=== PATIENT | male | born 1950 | race Caucasian/White ===

== ENCOUNTER 2018-02-27 22:18 | Day surgery (SDC) | payer OTHER, MEDICARE ==
[~2018-02-27] VITALS: Ht 182.9 cm; Wt 128.2 kg
[~2018-02-27 22:18] MED LIST: ALLO100T30 PO; DABI150C PO; DUTA1CPM PO
[2018-02-27] MEDS ORDERED: ONDANSETRON ODT 4 MG ONE (22:47)
[2018-02-27] MEDS ORDERED: MORPHINE SULFATE 4 MG/ML, 1ML ONE ×2 (22:48→23:56)
[2018-02-27] MEDS: MORPHINE SULFATE 4 MG/ML, 1ML IVPush PRN (22:55)
[2018-02-27] MEDS ORDERED: ONDANSETRON ODT 4 MG PO ONE (23:00)
[2018-02-27] MEDS ORDERED: SODIUM CHLORIDE FLUSH 10ML SYR IVF ONE (23:00)
[2018-02-27 23:13] LABS: MICROSCOPIC AUTO
[2018-02-27 23:14] LABS: CULTURE INDICATED? NO
[2018-02-27 23:21] LABS: ALANINE AMINOTRANSFERASE 50 U/L (12-78); ALBUMIN 3.3 g/dL (3.4-5.0); ANION GAP 8 mmol/L (5-15); BASOPHILS # (AUTO) 0.04 x10^3/uL (0-0.1); BASOPHILS % (AUTO) 0 % (0-1); CALCIUM 8.6 mg/dL (8.5-10.1); CHLORIDE 109 mmol/L (98-107); CREATININE 1.15 mg/dL (0.7-1.3); EOSINOPHILS # (AUTO) 0.06 x10^3/uL (0-0.4); EOSINOPHILS % (AUTO) 1 % (1-7); LYMPHOCYTES # (AUTO) 2.16 x10^3/uL (1-3.4); LYMPHOCYTES % (AUTO) 21 % (22-44); MD NO; MEAN CORPUSCULAR HEMOGLOBIN 29.4 pg (27.5-34.5); MEAN CORPUSCULAR HGB CONC 33.5 g/dL (33.2-36.2); MEAN CORPUSCULAR VOLUME 87.6 fL (81-97); MONOCYTES # (AUTO) 0.65 x10^3/uL (0.2-0.8); MONOCYTES % (AUTO) 6 % (2-9); NEUTROPHILS # (AUTO) 7.31 x10^3/uL (1.8-6.8); NEUTROPHILS % (AUTO) 72 % (42-75); PLATELET COUNT 319 x10^3/uL (130-400); RED BLOOD COUNT 5.17 x10^6/uL (4.38-5.82)
[2018-02-27 23:25] LABS: INTERNATIONAL NORMALIZED RATIO 1.04 (0.93-1.1); PROTHROMBIN TIME 10.8 Seconds (9.6-11.5)
[2018-02-27 23:26] LABS: ALKALINE PHOSPHATASE 76 U/L (45-117); BILIRUBIN,TOTAL 0.3 mg/dL (0.2-1.0); TOTAL PROTEIN 7.5 g/dL (6.4-8.2); TROPONIN I < 0.015 ng/mL (0.000-0.045)
[2018-02-28] MEDS: MORPHINE SULFATE 4 MG/ML, 1ML IVPush PRN (00:14)
[2018-02-28] MEDS ORDERED: ONDANSETRON ODT 4 MG ONE (01:14)
[2018-02-28] MEDS ORDERED: SODIUM CHLORIDE 0.9% 1,000 ML IV ONE (01:21)
[2018-02-28] MEDS ORDERED: PIPERACILLIN/TAZO/PMX 3.375GM 50 ML ONE (01:23)
[2018-02-28] MEDS ORDERED: MORPHINE SULFATE 4 MG/ML, 1ML ONE (01:23)
[2018-02-28] MEDS ORDERED: PIPERACILLIN/TAZO/PMX 3.375GM 50 ML IV ONE (01:30)
[2018-02-28] MEDS ORDERED: MORPHINE SULFATE 4 MG/ML, 1ML IVPush PRN ×2 (01:30→12:30)
[2018-02-28] MEDS ORDERED: ONDANSETRON 2MG/ML, 2ML IVPush PRN ×2 (01:30→09:30)
[2018-02-28] MEDS ORDERED: SODIUM CHLORIDE FLUSH 10ML SYR IVF PRN (01:30)
[2018-02-28] MEDS ORDERED: ONDANSETRON 2MG/ML, 2ML IVPush ONE (01:30)
[2018-02-28] MEDS: PROMETHAZINE 25 MG/ML, 1ML IM PRN ×2 (01:39→02:56)
[2018-02-28] MEDS ORDERED: ONDANSETRON 2MG/ML, 2ML ONE ×4 (01:39→12:10)
[2018-02-28 02:31] VITALS: BP 155/86
[2018-02-28] MEDS ORDERED: FAMO-79 PO (02:38)
[2018-02-28] MEDS ORDERED: FAMO20TA37 PO (02:38)
[2018-02-28] MEDS ORDERED: HYDROmorphone 2 MG/ML, 1ML ONE ×2 (02:53→03:47)
[2018-02-28] MEDS: HYDROmorphone 1 MG/ML, 1ML IVPush PRN ×2 (02:56→03:51)
[2018-02-28 07:53] VITALS: BP 177/87
[2018-02-28] MEDS ORDERED: HYDROmorphone 2 MG/ML, 1ML IV PRN (09:30)
[2018-02-28] MEDS ORDERED: LABETALOL 5MG/ML, 20ML IVPush PRN (09:30)
[2018-02-28 09:51] VITALS: BP 153/79
[2018-02-28] MEDS: PIPERACILLIN/TAZO/PMX 3.375GM 50 ML IV SCH ×2 (09:51→15:49)
[2018-02-28] MEDS ORDERED: BUPIVACAINE/PF-EPI 0.5% 1:200K ONE (11:06)
[2018-02-28] MEDS ORDERED: MIDAZOLAM 1 MG/ML, 2ML ONE (11:40)
[2018-02-28] MEDS ORDERED: FENTANYL PF 250 MCG/5ML ONE (11:40)
[2018-02-28] MEDS ORDERED: DEXAMETHASONE 4 MG/ML, 1ML ONE ×3 (11:41→12:10)
[2018-02-28] MEDS ORDERED: GLYCOPYRROLATE 0.2MG/1ML, 5ML ONE (11:41)
[2018-02-28] MEDS ORDERED: NEOSTIGMINE 1 MG/ML, 10ML ONE ×2 (11:41→12:30)
[2018-02-28] MEDS ORDERED: OMNIPAQUE 350 MG/ML, 100ML BOTTLE ONE (12:00)
[2018-02-28] MEDS ORDERED: BUPIVACAINE/PF-EPI 0.5% 1:200K INFIL ONE (12:00)
[2018-02-28] MEDS ORDERED: SUCCINYLCHOLINE 20 MG/ML, 10ML ONE (12:09)
[2018-02-28] MEDS ORDERED: CEFAZOLIN 1,000 MG ONE (12:09)
[2018-02-28] MEDS ORDERED: ROCURONIUM 10MG/ML,5ML ONE (12:09)
[2018-02-28] MEDS ORDERED: EPHEDRINE 50 MG/ML, 1ML IVPush PRN (12:30)
[2018-02-28] MEDS ORDERED: hydrALAzine 20 MG/ML, 1ML IV PRN (12:30)
[2018-02-28] MEDS ORDERED: ONDANSETRON 2MG/ML, 2ML IV PRN (12:30)
[2018-02-28] MEDS ORDERED: PROMETHAZINE 12.5 MG SUPP PR PRN (12:30)
[2018-02-28] MEDS ORDERED: HALOPERIDOL 5 MG/ML IV PRN (12:30)
[2018-02-28] MEDS ORDERED: MIDAZOLAM 1 MG/ML, 2ML IV PRN (12:30)
[2018-02-28] MEDS ORDERED: ONDANSETRON ODT 8 MG PO PRN (12:30)
[2018-02-28] MEDS ORDERED: HYDROmorphone 1 MG/ML, 1ML IV PRN (12:30)
[2018-02-28] MEDS ORDERED: OXYcodone 5 MG/5 ML ORAL.SOL UDC PO PRN (12:30)
[2018-02-28] MEDS ORDERED: ALBUTEROL SULFATE 2.5 MG/3 ML NPPB PRN (12:30)
[2018-02-28] MEDS ORDERED: PROMETHAZINE 25 MG/ML, 1ML IV PRN (12:30)
[2018-02-28] MEDS ORDERED: MEPERIDINE/PF 25MG/0.5ML IVPush PRN (12:30)
[2018-02-28] MEDS ORDERED: LABETALOL 5MG/ML, 20ML IV PRN (12:30)
[2018-02-28] MEDS ORDERED: LORazepam 2 MG/ML, 1ML IVPush PRN (12:30)
[2018-02-28] MEDS ORDERED: LABETALOL 5MG/ML, 20ML ONE (13:24)
[2018-02-28] MEDS ORDERED: ACETAMINOPHEN 650 MG/20.3 ML UDC ONE (13:30)
[2018-02-28] MEDS ORDERED: ACETAMINOPHEN 325 MG TABLET ONE (13:30)
[2018-02-28] MEDS ORDERED: FENTANYL PF 100 MCG/2ML ONE (13:30)
[2018-02-28] MEDS ORDERED: OXYcodone 5 MG/5 ML ORAL.SOL UDC ONE (13:31)
[2018-02-28] MEDS: FENTANYL PF 100 MCG/2ML IV PRN ×2 (13:35→13:45)
[2018-02-28] MEDS ORDERED: ACETAMINOPHEN 325 MG TABLET PO PRN (14:00)
[2018-02-28] MEDS ORDERED: hydrALAzine 20 MG/ML, 1ML ONE (14:36)
[2018-02-28 15:00] VITALS: BP 141/74
[2018-02-28] MEDS ORDERED: FAMOTIDINE 20 MG TABLET PO SCH (21:00)
[2018-02-28] MEDS ORDERED: ALLOPURINOL 100 MG TABLET PO SCH (21:00)
== END 2018-02-28 20:43 | disposition home or self-care (01) ==
LOC: ED 23:10 → EDIP 02-28 01:26 → UNDOADMIN 02-28 01:26 → 3NW 02-28 02:16 → EDIP 02-28 02:16 → OR 02-28 11:24 → UNDODISIN 02-28 20:43
PROVIDERS: ATTEND Surgery
DX: K80.00 Calculus of gallbladder with acute cholecystitis without obstruction (principal); E78.5 Hyperlipidemia, unspecified; M10.9 Gout, unspecified; K21.9 Gastro-esophageal reflux disease without esophagitis; E66.9 Obesity, unspecified; N40.0 Benign prostatic hyperplasia without lower urinary tract symptoms; Z68.38 Body mass index [BMI] 38.0-38.9, adult; Z91.018 Allergy to other foods; Z86.718 Personal history of other venous thrombosis and embolism; Z86.711 Personal history of pulmonary embolism
CPT/HCPCS: 36415; 47562; 71045; 74177; 80053; 81001; 83690; 84484; 85025; 85610; 85730; 88304; 93005; 96374; 96375; 99285; J0330; J0360; J0690; J1100; J1170; J2250; J2405; J2543; J2550; J2710; J3010; J3490; J7030; Q0162; Q9967; G0378